=== PATIENT | male | born 2005 ===

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

== ENCOUNTER 2023-12-29 08:34 | Emergency (ER) | payer OTHER, SELFPAY | END 2023-12-29 11:59 | disposition home or self-care (01) | LOC: ERS 08:34 | DX: J36 Peritonsillar abscess (principal); F17.290 Nicotine dependence, other tobacco product, uncomplicated; Z55.6 Problems related to health literacy | CPT/HCPCS: 70491; 80053; 85025; 87430; 96374; 96375; J1100; J1885; J3490; Q9967 ==